=== PATIENT | male | born 1965 | race Caucasian/White ===

== ENCOUNTER 2016-10-15 18:45 | Emergency (ER) | payer OTHER ==
--- NOTE | 2016-10-15 19:44 | ED NURSING NOTES ---
Clinical Report - Nurses [facility] [address] [place] [address] 10/15/2016 18:45 Patient: RIAZ MARCOS TRIAGE Triage time 18:52. Acuity: LEVEL 3. Chief Complaint: INJURY TO RIGHT KNEE. Alert. No acute distress. PATRIA COMA SCORE: [place] Coma Scale: 15- eyes open spontaneously (4); best verbal response- oriented x 4 (5); best motor response- obeys commands (6). --18:58 Laura Velásquez R.N. 18:52 10/15/16. BP: 185/108. HR: 100. RR: 17. O2 saturation: 100%. Temp: 98.1 F. Pain level now 4/10. --18:58 Laura Velásquez R.N. Weight: 68 kg stated. Height/Length: 69 inches Per Patient. BMI: 22.2. --18:54 Laura Velásquez R.N. Medications None. --18:55 Laura Velásquez R.N. Allergies Penicillins. --18:56 Laura Velásquez R.N. Medication/allergy information source: the patient. --18:58 Laura Velásquez R.N. History Arrived by private vehicle, and accompanied by (girlfriend). Primary physician (no pcp). 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 This occurred just prior to arrival. He sustained a laceration. 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 PAST MEDICAL HX: Tetanus status: up-to-date. SOCIAL HX: Heavy tobacco smoker (cigarette)- 1 pack per day. Occasional alcohol use. History of drug use: marijuana. SELF HARM ASSESSMENT: A self harm assessment was performed. The patient answered "no" to the question "Do you have thoughts of harming or killing yourself?" and "Have you recently had thoughts about harming or killing others?". FALL RISK ASSESSMENT: Fall risk assessment completed. No fall risk identified. NUTRITIONAL RISK ASSESSMENT: The nutritional risk assessment revealed no deficiencies. FUNCTIONAL ASSESSMENT: Functional assessment: no impairments noted. LEARNING NEEDS ASSESSMENT: The learning needs assessment revealed no barriers. SKIN INTEGRITY ASSESSMENT: Skin integrity risk assessment completed. No skin integrity risk identified. --18:58 Laura Velásquez R.N. PROBLEMS: Abscess. Immunizations. Acute Pain. Laceration. Nephrolithiasis. Tetanus Status. --18:56 Laura Velásquez R.N. ADDITIONAL SURGERIES: Back Surgery. Fracture Repair. Hernia Repair. --18:56 Laura Velásquez R.N. Interventions ID band on patient. To treatment room. --18:58 Laura Velásquez R.N. PHYSICAL ASSESSMENT Ambulatory to room. GENERAL / NEURO / PSYCH: Oriented X 4. Alert. Appears in no acute distress. EXTREMITIES: Capillary refill is less than 2 seconds in the extremities. Neuro-vascular status intact to the extremity. Right knee: deep 5.0 cm laceration with controlled bleeding. SKIN: Skin is warm and dry. --18:59 Laura Velásquez R.N. CVS: Pulses: right dorsalis pedis 3+. EXTREMITIES: Extremity pulses are within normal limits. --18:59 Laura Velásquez R.N. NURSING PROGRESS NOTES The plan of care for this patient has been created. Call light placed in reach. Bed placed in lowest position. Brakes of bed on. Patient ready for evaluation- chart flagged. --18:59 Laura Velásquez R.N. WOUND REPAIR: Wound repair performed by SHOE COVERER. The wound is located on the right knee. The wound is 6 cm. The wound is linear. Preparation: suture tray set-up with 1% lidocaine. Wound cleansed per SHOE COVERER and irrigated per SHOE COVERER. Procedure: wound repaired with sutures. Post-procedure: he was stable, no complications, bleeding controlled, neuro-vascular status intact distal to wound and dressing applied. Total time of assist / procedure: 30 minutes. ( One suture pack used). --: Cherrie Daniel 10/15/2016 Lidocaine Injection Injectable 1 % given. Allergies verified and confirmed 5 rights. (Injected by provider into wound on right knee). --:28 Cherrie Daniel Applied clean dressing consisting of 4x4 gauze, following the application of antibiotic ointment. Secured with kerlix. --20:02 April Serrato. DISPOSITION / DISCHARGE 20:05 10/15/16. Condition at departure: stable. The goals identified in the patient's plan of care were met. No learning barriers present. Discharge instructions provided and reviewed with the patient and spouse. Reviewed medication(s) side effects, precautions, dosing and course information. Prescription(s) given to the patient. Reviewed wound care instructions. Patient and spouse verbalized understanding. Written instructions provided in Pashto. ( Follow up with your PCP in 12 days for suture removal. Discussed wound care and signs and symptoms of infection. Discussed dressing change. Elevate extremity, take anti-inflammatory as needed and apply ice for swelling as needed. Patient and spouse verbalized understanding and had no additional questions at this time.). The patient was discharged by the nurse practitioner. He was discharged home and accompanied by spouse. He left the Emergency Department ambulatory and via private vehicle. Spouse driving. FALL RISK ASSESSMENT: Fall risk assessment completed. No fall risk identified. --20:39 Cherrie Daniel 20:05 10/15/16. BP: deferred. HR: deferred. RR: deferred. O2 saturation: deferred. Temp: deferred. Pain level now deferred. Additional comments: Patient declined discharge vitals . --20:39 Cherrie Daniel. Locked/Released at 10/16/2016 1:24 by Cherrie Daniel,
--- NOTE | 2016-10-15 19:44 | ED ORDER SUMMARY ---
..... Patient: RIAZ MARCOS OrderSheet [facility] VisitID: [id number] [place] [address] 51y, M Registration Date/Time: 10/15/2016 ORDER SHEET Weight: 68.0 kg (stated) Allergies: Penicillins GENERAL ORDERS: Suture Set-up: (:10/15/2016 HBivens A.R.N.P.) (Ack 19:21 HSoule) (19:28 HSoule) Dress Wounds (:10/15/2016 HBivens A.R.N.P.) (Ack 19:21 HSoule) MEDICATION ORDERS: Lidocaine Injection 1% (NOW) (:10/15/2016 HBivens A.R.N.P.) (Ack 19:21 HSoule) (19:28 HSoule) IV FLUIDS: ORDER SHEET NOTES: [Electronically signed by Laney Dawson A.R.N.P. (20:37 10/15/2016)] [Electronically signed by Cherrie Daniel (:24 10/16/2016)] [Electronically locked/signed by Cherrie Daniel (10/16/2016)]
--- NOTE | 2016-10-15 19:44 | ED CLINICAL REPORT ---
Clinical Report - Physicians/Mid Levels [facility] [address] [place] [address] 10/15/2016 18:45 Patient: RIAZ MARCOS Time Seen: 18:50; initial patient contact, initial documentation, patient care assumed. Arrived- By private vehicle. Historian- patient and spouse. HISTORY OF PRESENT ILLNESS Chief Complaint: Injury to right knee. The injury happened just prior to arrival. The patient sustained a laceration from a saw (chainsaw). Occurred at home. Patient is experiencing mild pain. Patient denies injury to the head or neck. No other injury. REVIEW OF SYSTEMS The patient sustained a laceration. No swelling, tingling, weakness, numbness or suspected foreign body. He has no pain on weight bearing. All systems otherwise negative, except as recorded above. PAST HISTORY See nurses notes. ( PROBLEMS: Abscess. Immunizations. Acute Pain. Laceration. Nephrolithiasis. Tetanus Status. --18:56 Laura Velásquez RChristalN. ADDITIONAL SURGERIES: Back Surgery. Fracture Repair. Hernia Repair. --18:56 Laura Velásquez R.N.). Tetanus immunization status is up-to-date. SOCIAL HISTORY Heavy tobacco smoker. Occasional alcohol use. History of occasional drug use: marijuana. No recent travel. Is a local resident. He lives with spouse. FAMILY HISTORY No significant family medical history. ADDITIONAL NOTES The nursing notes have been reviewed with agreement regarding the chief complaint, HPI, ROS, PMH and patient medications and allergies. PHYSICAL EXAM Vital Signs: 10/15/2016 18:52 BP: 185/108. HR: 100. RR: 17. O2 saturation: 100%. Temp: 98.1 F. Have been reviewed as abnormal and appear to be correct. Hypertensive. Heart rate normal. Respiratory rate normal. Temperature normal. Oxygen saturation normal. Appearance: Alert. Oriented X3. Anxious. No acute distress. Head: Head atraumatic. Eyes: Pupils equal, round and reactive to light. Eyes normal inspection. Respiratory: No respiratory distress. Skin: Skin intact. Skin warm and dry. Normal skin color. Normal skin turgor. Extremities: Right knee: mild tenderness, subcutaneous 4.0 cm laceration and visualized foreign body located in the patella and medial joint line. SEE LACERATION PROCEDURE NOTE #1. Neurovascular intact distally. No ligamentous laxity present. No joint effusion. No erythema, swelling, abrasion, ecchymosis or puncture wound. No deformity. No limitation in ROM. Lower extremity exam otherwise negative. Extremities otherwise negative. Neuro, Vascular and Tendons: Vascular status intact. Sensation intact. Motor intact. Tendon function intact. Gait: Normal gait. Neuro: Oriented X 3. No motor deficit. No sensory deficit. Note: isolated injury to knee. PROGRESS AND PROCEDURES Laceration Repair: Location: right knee. Length: 4 cm. Complexity: simple (local anesthesia used and sutured). Wound depth/shape- linear and irregular and involving fascia. Contamination present and foreign body present. It is not clean. No contused tissue present. No tissue loss. Distal neuro/vascular/tendon status normal. Tendon not examined. No tendon deficit or laceration or tendon injury. Local anesthesia provided using 1% lidocaine (6 mL). Prepped with Betadine. Wound prep- x2 pieces of wood removed. Wound explored, cleansed, irrigated and examined to the base in bloodless field extensively with normal saline. Foreign material removed. Wound not debrided. Closure of lip: interrupted 4-0 nylon (5 sutures). Post-procedure: he is stable and there are no complications. Bleeding is controlled and neuro-vascular status is intact distal to the wound. Dressing applied. (per nursing staff, see other notes). Tetanus immunization up-to-date. Estimated blood loss: 2 mL. Course of Care: tx options discussed, pt declined xray offer x2, stating he was fine. Patient and spouse counseled in person regarding the patient's stable condition and diagnosis. Differential Diagnosis: Other possible considerations: lac, skin avulsion, tendon injury, bone injury, fb. Above considerations are based on history, physical exam and reassessment. Differential diagnosis was discussed with patient. Disposition: Discharged home in good and improved condition (19:44). Condition: good and stable. CLINICAL IMPRESSION Single deep laceration to the right knee. Foreign body present.Treatment of laceration not delayed. No infection. INSTRUCTIONS Protect wound and keep wound area clean. Change dressing twice daily. Soak in warm soapy water twice daily. Apply neosporin twice daily. Sutures should be removed in twelve days. Warnings: GENERAL WARNINGS: Return or contact your physician immediately if your condition worsens or changes unexpectedly, if not improving as expected, or if other problems arise. Specifically return if problem worsens. Prescription Medications: [place] 5 mg / 325 mg tablets: take 1 orally every 6 hours as needed for pain. Dispense five (5). No refill. Follow-up: Follow up with your doctor in about twelve days for suture removal and wound check. Call for an appointment. Summary of care provided to patient. Understanding of the discharge instructions verbalized by patient. (Electronically signed by Laney Dawson A.R.N.P. 10/15/2016 20:37)
--- NOTE | 2016-10-15 19:44 | ED ORDER SUMMARY ---
..... Patient: RIAZ MARCOS OrderSheet [facility] VisitID: [id number] [place] [address] 51y, M Registration Date/Time: 10/15/2016 ORDER SHEET Weight: 68.0 kg (stated) Allergies: Penicillins GENERAL ORDERS: Suture Set-up: (:10/15/2016 HBivens A.R.N.P.) (Ack 19:21 HSoule) (19:28 HSoule) Dress Wounds (:10/15/2016 HBivens A.R.N.P.) (Ack 19:21 HSoule) MEDICATION ORDERS: Lidocaine Injection 1% (NOW) (:10/15/2016 HBivens A.R.N.P.) (Ack 19:21 HSoule) (19:28 HSoule) IV FLUIDS: ORDER SHEET NOTES: [Electronically signed by Laney Dawson A.R.N.P. (20:37 10/15/2016)] [Electronically signed by Cherrie Daniel (:24 10/16/2016)] [Electronically locked/signed by Cherrie Daniel (10/16/2016)]
--- NOTE | 2016-10-15 19:44 | ED NURSING NOTES ---
Clinical Report - Nurses [facility] [address] [place] [address] 10/15/2016 18:45 Patient: RIAZ MARCOS TRIAGE Triage time 18:52. Acuity: LEVEL 3. Chief Complaint: INJURY TO RIGHT KNEE. Alert. No acute distress. PATRIA COMA SCORE: [place] Coma Scale: 15- eyes open spontaneously (4); best verbal response- oriented x 4 (5); best motor response- obeys commands (6). --18:58 Laura Velásquez R.N. 18:52 10/15/16. BP: 185/108. HR: 100. RR: 17. O2 saturation: 100%. Temp: 98.1 F. Pain level now 4/10. --18:58 Laura Velásquez R.N. Weight: 68 kg stated. Height/Length: 69 inches Per Patient. BMI: 22.2. --18:54 Laura Velásquez R.N. Medications None. --18:55 Laura Velásquez R.N. Allergies Penicillins. --18:56 Laura Velásquez R.N. Medication/allergy information source: the patient. --18:58 Laura Velásquez R.N. History Arrived by private vehicle, and accompanied by (girlfriend). Primary physician (no pcp). 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 This occurred just prior to arrival. He sustained a laceration. 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 PAST MEDICAL HX: Tetanus status: up-to-date. SOCIAL HX: Heavy tobacco smoker (cigarette)- 1 pack per day. Occasional alcohol use. History of drug use: marijuana. SELF HARM ASSESSMENT: A self harm assessment was performed. The patient answered "no" to the question "Do you have thoughts of harming or killing yourself?" and "Have you recently had thoughts about harming or killing others?". FALL RISK ASSESSMENT: Fall risk assessment completed. No fall risk identified. NUTRITIONAL RISK ASSESSMENT: The nutritional risk assessment revealed no deficiencies. FUNCTIONAL ASSESSMENT: Functional assessment: no impairments noted. LEARNING NEEDS ASSESSMENT: The learning needs assessment revealed no barriers. SKIN INTEGRITY ASSESSMENT: Skin integrity risk assessment completed. No skin integrity risk identified. --18:58 Laura Velásquez R.N. PROBLEMS: Abscess. Immunizations. Acute Pain. Laceration. Nephrolithiasis. Tetanus Status. --18:56 Laura Velásquez R.N. ADDITIONAL SURGERIES: Back Surgery. Fracture Repair. Hernia Repair. --18:56 Laura Velásquez R.N. Interventions ID band on patient. To treatment room. --18:58 Laura Velásquez R.N. PHYSICAL ASSESSMENT Ambulatory to room. GENERAL / NEURO / PSYCH: Oriented X 4. Alert. Appears in no acute distress. EXTREMITIES: Capillary refill is less than 2 seconds in the extremities. Neuro-vascular status intact to the extremity. Right knee: deep 5.0 cm laceration with controlled bleeding. SKIN: Skin is warm and dry. --18:59 Laura Velásquez R.N. CVS: Pulses: right dorsalis pedis 3+. EXTREMITIES: Extremity pulses are within normal limits. --18:59 Laura Velásquez R.N. NURSING PROGRESS NOTES The plan of care for this patient has been created. Call light placed in reach. Bed placed in lowest position. Brakes of bed on. Patient ready for evaluation- chart flagged. --18:59 Laura Velásquez R.N. WOUND REPAIR: Wound repair performed by COAL CHEMIST. The wound is located on the right knee. The wound is 6 cm. The wound is linear. Preparation: suture tray set-up with 1% lidocaine. Wound cleansed per COAL CHEMIST and irrigated per COAL CHEMIST. Procedure: wound repaired with sutures. Post-procedure: he was stable, no complications, bleeding controlled, neuro-vascular status intact distal to wound and dressing applied. Total time of assist / procedure: 30 minutes. ( One suture pack used). --: Cherrie Daniel 10/15/2016 Lidocaine Injection Injectable 1 % given. Allergies verified and confirmed 5 rights. (Injected by provider into wound on right knee). --:28 Cherrie Daniel Applied clean dressing consisting of 4x4 gauze, following the application of antibiotic ointment. Secured with kerlix. --20:02 Aprli Serrato. DISPOSITION / DISCHARGE 20:05 10/15/16. Condition at departure: stable. The goals identified in the patient's plan of care were met. No learning barriers present. Discharge instructions provided and reviewed with the patient and spouse. Reviewed medication(s) side effects, precautions, dosing and course information. Prescription(s) given to the patient. Reviewed wound care instructions. Patient and spouse verbalized understanding. Written instructions provided in Polish. ( Follow up with your PCP in 12 days for suture removal. Discussed wound care and signs and symptoms of infection. Discussed dressing change. Elevate extremity, take anti-inflammatory as needed and apply ice for swelling as needed. Patient and spouse verbalized understanding and had no additional questions at this time.). The patient was discharged by the nurse practitioner. He was discharged home and accompanied by spouse. He left the Emergency Department ambulatory and via private vehicle. Spouse driving. FALL RISK ASSESSMENT: Fall risk assessment completed. No fall risk identified. --20:39 Cherrie Daniel 20:05 10/15/16. BP: deferred. HR: deferred. RR: deferred. O2 saturation: deferred. Temp: deferred. Pain level now deferred. Additional comments: Patient declined discharge vitals . --20:39 Cherrie Daniel. Locked/Released at 10/16/2016 1:24 by Cherrie Daniel,
--- NOTE | 2016-10-16 01:24 | ED MAR SUMMARY ---
..... Medication Administration Record [facility] [address] [place] [address] Patient: RIAZ MARCOS Visit ID: [id number] 51y, M Weight: 68.0 kg Height/Length: 69 in BMI: 22.2 ALLERGIES: Penicillins Given 19:28 10/15/2016 Cherrie Daniel, Medication Administered: LIDOCAINE [INJECTION], Dose: 1 % Injectable Injection. Medication Ordered: Lidocaine Injection 1% (NOW).
--- NOTE | 2016-10-16 01:24 | ED MAR SUMMARY ---
..... Medication Administration Record [facility] [address] [place] [address] Patient: RIAZ MARCOS Visit ID: [id number] 51y, M Weight: 68.0 kg Height/Length: 69 in BMI: 22.2 ALLERGIES: Penicillins Given 19:28 10/15/2016 Cherrie Daniel, Medication Administered: LIDOCAINE [INJECTION], Dose: 1 % Injectable Injection. Medication Ordered: Lidocaine Injection 1% (NOW).
--- NOTE | 2016-10-16 01:24 | ED MED RECONCILIATION SUMMARY ---
Patient: RIAZ MARCOS Medication Reconciliation Report [facility] VisitID: [id number] [place] [address] 51y, M Registration Date/Time: 10/15/2016 Weight: 68.0 kg Height/Length: 69 in. BMI: 22.2 ALLERGIES: Penicillins The patient's Home Medications are listed below: NONE. The source(s) of the original Home Medication information: patient The following Medications were given to the patient in the Emergency Department: Lidocaine [Injection] Injection 1 %, administered: 10/15/2016 7:28:00 PM The following Medications were prescribed to the patient: [place] 5 mg / 325 mg tablets: take 1 orally every 6 hours as needed for pain. Dispense five (5). No refill. -- Laney Dawson A.R.N.P.
--- NOTE | 2016-10-16 01:24 | ED MED RECONCILIATION SUMMARY ---
Patient: RIAZ MARCOS Medication Reconciliation Report [facility] VisitID: [id number] [place] [address] 51y, M Registration Date/Time: 10/15/2016 Weight: 68.0 kg Height/Length: 69 in. BMI: 22.2 ALLERGIES: Penicillins The patient's Home Medications are listed below: NONE. The source(s) of the original Home Medication information: patient The following Medications were given to the patient in the Emergency Department: Lidocaine [Injection] Injection 1 %, administered: 10/15/2016 7:28:00 PM The following Medications were prescribed to the patient: [place] 5 mg / 325 mg tablets: take 1 orally every 6 hours as needed for pain. Dispense five (5). No refill. -- Laney Dawson A.R.N.P.
--- NOTE | 2016-10-16 01:24 | ED DISCHARGE INSTRUCTIONS ---
Patient: RIAZ MARCOS General Instructions [facility] VisitID: [id number] [place] [address] 51y, M Registration Date/Time: 10/15/2016 Single deep laceration to the right knee. Foreign body present.Treatment of laceration not delayed. No infection. INSTRUCTIONS Protect wound and keep wound area clean. Change dressing twice daily. Soak in warm soapy water twice daily. Apply neosporin twice daily. Sutures should be removed in twelve days. Warnings: GENERAL WARNINGS: Return or contact your physician immediately if your condition worsens or changes unexpectedly, if not improving as expected, or if other problems arise. Specifically return if problem worsens. Prescription Medications: [place] 5 mg / 325 mg tablets: take 1 orally every 6 hours as needed for pain. Dispense five (5). No refill. Follow-up: Follow up with your doctor in about twelve days for suture removal and wound check. Call for an appointment. Summary of care provided to patient. Understanding of the discharge instructions verbalized by patient. ADDITIONAL INFORMATION Laceration (All Closures) Alaceration is a cut through the skin. This will usually require stitches (sutures) or ole if it is deep. Minor cuts may be treated with a surgical tape closure orskin glue. Home care The following guidelines will help you care for your laceration at home: Extremity, face, or trunk wounds Keep the wound clean and dry. If a bandage was applied and it becomes wet or dirty, replace it. Otherwise, leave it in place for the first 24 hours. If stitches or ole were used, clean the wound daily. After removing the bandage, wash the area with soap and water. Use a wet cotton swab to loosen and remove any blood or crust that forms. The doctor may prescribe an antibiotic cream or ointment to prevent infection. Do not stop taking this medication until you have finished the prescribed course or the doctor tells you to stop. The doctor may also prescribe medications for pain. Follow the doctors instructions for taking these medications. You may remove the bandage to shower as usual after the first 24 hours, but do not soak the area in water (no swimming) until the stitches or ole are removed. If surgical tape was used, keep the area clean and dry. If it becomes wet, blot it dry with a towel. If skin glue was used, do not scratch, rub, or pick at the adhesive film. Do not place tape directly over the film. Do not apply liquid, ointment, or creams to the wound while the film is in place. Do not clean the wound with peroxide and do not apply ointments. Avoid activities that cause heavy sweating until the film has fallen off. Protect the wound from prolonged exposure to sunlight or tanning lamps. You may shower as usual but do not soak the wound in water (no baths or swimming). The film will fall off by itself in 510 days. Scalp wounds During the first two days, you may carefully rinse your hair in the shower to remove blood, glass or dirt particles. After two days, you may shower and shampoo your hair normally. Do not soak your scalp in the tub or go swimming until the stitches or ole have been removed. Talk with your doctor before applying any antibiotic ointment to the wound. Mouth wounds Eat soft foods to reduce pain. If the cut is inside of your mouth, clean by rinsing after each meal and at bedtime with a mixture of equal parts water and hydrogen peroxide (do not swallow!). Or, you can use a cotton swab to directly apply hydrogen peroxide onto the cut. Mouth wounds can be painful when eating. You may use an [id number] local numbing solution for pain relief. If this is not available, you may use any numbing solution for teething babies. You may apply this directly to the sores with a cotton-tip swab or with your finger. Follow-up care Follow up with your health care provider. Most skin wounds heal within ten days. Mouth and facial wounds heal within five days. However, even with proper treatment, a wound infection may sometimes occur. Therefore, you should check the wound daily for signs of infection listed below. Stitches should be removed from the face within five days; stitches and ole should be removed from other parts of the body within 714 days. If dissolving stitches were used in the mouth, these will fall out or dissolve without the need for removal. If tape closures were used, remove them yourself if they have not fallen off after 7 days. Ifskin glue was used, the film will fall off by itself in 510 days. When to seek medical care Get prompt medical attention if any of these occur: Bleeding not controlled by direct pressure Signs of infection, including increasing pain in the wound, increasing wound redness or swelling, or pus coming from the wound Fever of 100.4F (38C) or higher, or as directed by your health care provider Stitches or ole come apart or fall out or surgical tape falls off before 7 days Wound edges re-open Hydrocodone Bitartrate, Acetaminophen Oral tablet What is this medicine? ACETAMINOPHEN; HYDROCODONE (a set a JOANN geoffrey fen; arben droe KOE done) is a pain reliever. It is used to treat mild to moderate pain. How should I use this medicine? Take this medicine by mouth. Swallow it with a full glass of water. Follow the directions on the prescription label. If the medicine upsets your stomach, take the medicine with food or milk. Do not take more than you are told to take. Talk to your network operations center technician regarding the use of this medicine in children. This medicine is not approved for use in children. What side effects may I notice from receiving this medicine? Side effects that you should report to your doctor or health housekeeper child care as soon as possible: allergic reactions like skin rash, itching or hives, swelling of the face, lips, or tongue breathing problems confusion feeling faint or lightheaded, falls stomach pain yellowing of the eyes or skin Side effects that usually do not require medical attention (report to your doctor or health housekeeper child care if they continue or are bothersome): nausea, vomiting stomach upset What may interact with this medicine? alcohol antihistamines isoniazid medicines for depression, anxiety, or psychotic disturbances medicines for sleep muscle relaxants naltrexone narcotic medicines (opiates) for pain phenobarbital ritonavir tramadol What if I miss a dose? If you miss a dose, take it as soon as you can. If it is almost time for your next dose, take only that dose. Do not take double or extra doses. Where should I keep my medicine? Keep out of the reach of children. This medicine can be abused. Keep your medicine in a safe place to protect it from theft. Do not share this medicine with anyone. Selling or giving away this medicine is dangerous and against the law. Store at room temperature between 15 and 30 degrees C (59 and 86 degrees F). Protect from light. Keep container tightly closed. Throw away any unused medicine after the expiration date. Discard unused medicine and used packaging carefully. Pets and children can be harmed if they find used or lost packages. What should I tell my health care provider before I take this medicine? They need to know if you have any of these conditions: brain tumor Crohn's disease, inflammatory bowel disease, or ulcerative colitis drink more than 3 alcohol-containing drinks per day drug abuse or addiction head injury heart or circulation problems kidney disease or problems going to the bathroom liver disease lung disease, asthma, or breathing problems an unusual or allergic reaction to acetaminophen, hydrocodone, other opioid analgesics, other medicines, foods, dyes, or preservatives or trying to get breast-feeding What should I watch for while using this medicine? Tell your doctor or health housekeeper child care if your pain does not go away, if it gets worse, or if you have new or a different type of pain. You may develop tolerance to the medicine. Tolerance means that you will need a higher dose of the medicine for pain relief. Tolerance is normal and is expected if you take the medicine for a long time. Do not suddenly stop taking your medicine because you may develop a severe reaction. Your body becomes used to the medicine. This does NOT mean you are addicted. Addiction is a behavior related to getting and using a drug for a non-medical reason. If you have pain, you have a medical reason to take pain medicine. Your doctor will tell you how much medicine to take. If your doctor wants you to stop the medicine, the dose will be slowly lowered over time to avoid any side effects. You may get drowsy or dizzy when you first start taking the medicine or change doses. Do not drive, use machinery, or do anything that may be dangerous until you know how the medicine affects you. Stand or sit up slowly. There are different types of narcotic medicines (opiates) for pain. If you take more than one type at the same time, you may have more side effects. Give your health care provider a list of all medicines you use. Your doctor will tell you how much medicine to take. Do not take more medicine than directed. Call emergency for help if you have problems breathing. The medicine will cause constipation. Try to have a bowel movement at least every 2 to 3 days. If you do not have a bowel movement for 3 days, call your doctor or health housekeeper child care. Too much acetaminophen can be very dangerous. Do not take Tylenol (acetaminophen) or medicines that contain acetaminophen with this medicine. Many non-prescription medicines contain acetaminophen. Always read the labels carefully. You have been given the following additional information: Laceration, All Hydrocodone Bitartrate, Acetaminophen Oral tablet (Electronically signed by Laney Dawson A.R.N.P. 10/15/2016 20:37)
== END 2016-10-15 20:05 | disposition home or self-care (01) ==
LOC: ED SRH 18:45
DX: S81.021A Laceration with foreign body, right knee, initial encounter (principal); W29.3XXA Contact with powered garden and outdoor hand tools and machinery, initial encounter; Y92.009 Unspecified place in unspecified non-institutional (private) residence as the place of occurrence of the external cause; F17.210 Nicotine dependence, cigarettes, uncomplicated; Z88.0 Allergy status to penicillin